=== PATIENT | female | born 1970 | race African-American/Black ===

== ENCOUNTER 2017-11-13 08:59 | Observation (INO) ==
--- NOTE | 2017-11-13 09:57 | ED ---
HPI General Chief Complaint: Recheck/Abnormal Lab/Rx Stated Complaint: physent/medical complaint Time Seen by Provider: 11/13/17 09:43 Source: patient Mode of arrival: ambulatory Limitations: no limitations History of Present Illness HPI narrative: 47 y/o female states she was called for a critical hemoglobin of 6.[address] Back. 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 She states she has not set up a primary doctor yet. 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 She denies any active bleeding or other concurrent complaints at this time. This result was from yesterday. complaint: abnormal lab Initial visit (ago): day(s) Symptoms since prior visit: no new symptoms Context: called for abnormal lab result Associated symptoms: none Related Data Home Medications Medication Instructions Recorded Confirmed gabapentin 400 mg PO TID 11/13/17 11/13/17 Allergies Allergy/AdvReac Type Severity Reaction Status Date / Time No Known Allergies Allergy Unverified 11/13/17 09:24 Review of Systems ROS: all other systems reviewed are negative [facility] Medical History Medical History Anemia (Acute) Anxiety (Acute) Neuropathy (Acute) Surgical History Surgical History H/O section (Acute) History of cholecystectomy (Acute) Hx of gastric bypass (Acute) Social History Social History Substance History: No History of Abuse Smoking Status: Current every day smoker Tobacco Type: Cigarettes How Often Do You Have a Drink Containing Alcohol: Never Recent Travel in [facility] within the Last 8 Weeks: No Recent Out of Country Travel within the Last 8 Weeks: No Immunization History Tetanus Immunization: Unsure Hx Influenza Vaccine This Season: No Exam Narrative Exam Narrative: GENERAL: 47 y/o female in no apparent distress SKIN: Focused skin assessment warm/dry. HEAD: Atraumatic. Normocephalic. EYES: Pupils equal and round. No scleral icterus. No injection or drainage. ENT: No nasal bleeding or discharge. Mucous membranes pink and moist. NECK: Trachea midline. CARDIOVASCULAR: Regular rate and rhythm. RESPIRATORY: No accessory muscle use. GASTROINTESTINAL: Abdomen soft, non-tender, nondistended. MUSCULOSKELETAL: No obvious deformities. No clubbing. No cyanosis. NEUROLOGICAL: Awake and alert. Motor grossly within normal limits. Normal speech. PSYCHIATRIC: Appropriate mood and affect; insight and judgment normal. Course Reevaluation(s) Reevaluation #1: patient updated and agrees to admit Consultations Consultation #1: dr suarez agrees to admit Initial Documented Vital Signs Temperature 98.8 F 11/13/17 09:01 Pulse Rate 93 H 11/13/17 09:01 Respiratory Rate 15 11/13/17 09:01 Blood Pressure 131/74 11/13/17 09:01 Pulse Oximetry 100 11/13/17 09:01 Last Documented Vital Signs Temperature 98 F 11/13/17 11:34 Pulse Rate 70 11/13/17 11:34 Respiratory Rate 17 11/13/17 11:34 Blood Pressure 133/61 11/13/17 11:34 Pulse Oximetry 99 11/13/17 11:34 Medical Decision Making MDM Narrative Medical decision making narrative: Will confirm lab results and if still critically low transfuse with 2 units and observe overnight. Patient agrees to plan Medical Screen Exam Complete: Yes Emergency Medical Condition: Yes Differential Diagnosis Differential Diagnosis: Anemia, iron deficiency, vitamin deficiency, lab error Lab Data Lab results reviewed: Yes I reviewed the patient's lab results. Result diagrams: 11/13/17 09:42 11/13/17 09:42 Lab Results 11/13/17 11/13/17 11/13/17 Range/Units 09:42 09:42 09:42 WBC 3.2 L (4.0-11.0) th/mm3 RBC 3.48 L (4.00-5.30) mil/mm3 Hgb 7.2 L (11.6-15.3) gm/dL Hct 24.2 L (35.0-46.0) % MCV 69.6 L (80.0-100.0) fL MCH 20.6 L (27.0-34.0) pg MCHC 29.5 L (32.0-36.0) % RDW 22.1 H (11.6-17.2) % Plt Count 283 (150-450) th/mm3 MPV 9.0 (7.0-11.0) fL Neut % (Auto) 37.8 (16.0-70.0) % Lymph % (Auto) 46.9 H (9.0-44.0) % [place] % (Auto) 10.2 H (0.0-8.0) % Eos % (Auto) 3.5 (0.0-4.0) % Baso % (Auto) 1.6 (0.0-2.0) % Neut # (Auto) 1.2 L (1.8-7.7) th/mm3 Lymph # (Auto) 1.5 (1.0-4.8) th/mm3 [place] # (Auto) 0.3 (0.0-0.9) th/mm3 Eos # (Auto) 0.1 (0.0-0.4) th/mm3 Baso # (Auto) 0.1 (0.0-0.2) th/mm3 WBC Differential . Differential Comment Auto diff final PT 10.3 (9.8-11.6) sec INR 1.0 Ratio Sodium 141 (136-145) meq/L Potassium 4.2 (3.5-5.1) meq/L Chloride 111 H (98-107) meq/L Carbon Dioxide 21.5 (21.0-32.0) meq/L Anion Gap 9 (5-15) meq/L BUN 4 L (7-18) mg/dL Creatinine 0.88 (0.50-1.00) mg/dL Estimated GFR 83 L (>89) mL/min Random Glucose 99 (74-106) mg/dL Calcium 8.1 L (8.5-10.1) mg/dL Total Bilirubin 0.3 (0.2-1.0) mg/dL AST 21 (15-37) U/L ALT 14 (10-53) U/L Alkaline Phosphatase 81 (45-117) U/L Total Protein 7.8 (6.4-8.2) g/dL Albumin 3.0 L (3.4-5.0) g/dL Blood Type Blood Type Recheck Antibody Screen MTS Gel Crossmatch 11/13/17 11/13/17 Range/Units 09:42 10:15 WBC (4.0-11.0) th/mm3 RBC (4.00-5.30) mil/mm3 Hgb (11.6-15.3) gm/dL Hct (35.0-46.0) % MCV (80.0-100.0) fL MCH (27.0-34.0) pg MCHC (32.0-36.0) % RDW (11.6-17.2) % Plt Count (150-450) th/mm3 MPV (7.0-11.0) fL Neut % (Auto) (16.0-70.0) % Lymph % (Auto) (9.0-44.0) % [place] % (Auto) (0.0-8.0) % Eos % (Auto) (0.0-4.0) % Baso % (Auto) (0.0-2.0) % Neut # (Auto) (1.8-7.7) th/mm3 Lymph # (Auto) (1.0-4.8) th/mm3 [place] # (Auto) (0.0-0.9) th/mm3 Eos # (Auto) (0.0-0.4) th/mm3 Baso # (Auto) (0.0-0.2) th/mm3 WBC Differential Differential Comment PT (9.8-11.6) sec INR Ratio Sodium (136-145) meq/L Potassium (3.5-5.1) meq/L Chloride (98-107) meq/L Carbon Dioxide (21.0-32.0) meq/L Anion Gap (5-15) meq/L BUN (7-18) mg/dL Creatinine (0.50-1.00) mg/dL Estimated GFR (>89) mL/min Random Glucose (74-106) mg/dL Calcium (8.5-10.1) mg/dL Total Bilirubin (0.2-1.0) mg/dL AST (15-37) U/L ALT (10-53) U/L Alkaline Phosphatase (45-117) U/L Total Protein (6.4-8.2) g/dL Albumin (3.4-5.0) g/dL Blood Type B Positive Blood Type Recheck Required Antibody Screen Negative MTS Gel Crossmatch See Detail Imaging Data Attestation: I personally reviewed and interpreted this imaging study as follows : Discharge Plan Discharge Disposition Patient Disposition: 30 Still Patient Discharge Condition Condition: Stable Discharge Details Diagnosis: Anemia Physicians Team ED Provider: Ashly Garcia Primary Care Provider: Primary Care Rachel Shaffer Attending Provider: Shane Traore Discharge Interventions Interventions: Vital Signs Last Done: 11/13/17 09:35 Status ED Status: Admitted Observation Patient
[2017-11-13] MEDS ORDERED: Sodium Chlor 0.9% Inj 250 ML IV.SIG SCH (10:00)
[2017-11-13 10:13] LABS: Baso # (Auto) 0.1 th/mm3 (0.0-0.2); Baso % (Auto) 1.6 % (0.0-2.0); Eos # (Auto) 0.1 th/mm3 (0.0-0.4); Eos % (Auto) 3.5 % (0.0-4.0); Hematocrit 24.2 % (35.0-46.0); Hemoglobin 7.2 gm/dL (11.6-15.3); Lymph # (Auto) 1.5 th/mm3 (1.0-4.8); Lymph % (Auto) 46.9 % (9.0-44.0); Mean Corpuscular Hemoglobin 20.6 pg (27.0-34.0); Mean Corpuscular Volume 69.6 fL (80.0-100.0); Mono # (Auto) 0.3 th/mm3 (0.0-0.9); Mono % (Auto) 10.2 % (0.0-8.0); Neut # (Auto) 1.2 th/mm3 (1.8-7.7); Neut % (Auto) 37.8 % (16.0-70.0); Platelet Count 283 th/mm3 (150-450); Red Blood Count 3.48 mil/mm3 (4.00-5.30); Red Cell Distribution Width 22.1 % (11.6-17.2); White Blood Count 3.2 th/mm3 (4.0-11.0)
[2017-11-13 10:15] LABS: Mean Corpuscular HGB Conc 29.5 % (32.0-36.0)
[2017-11-13 10:41] LABS: Prothrombin Time 10.3 sec (9.8-11.6)
[2017-11-13 10:51] LABS: Alanine Aminotransferase 14 U/L (10-53); Alkaline Phosphatase 81 U/L (45-117); Anion Gap 9 meq/L (5-15); Aspartate Aminotransferase 21 U/L (15-37); Blood Urea Nitrogen 4 mg/dL (7-18); Calcium 8.1 mg/dL (8.5-10.1); Carbon Dioxide 21.5 meq/L (21.0-32.0); Chloride 111 meq/L (98-107); Glomerular Filtration Rate 83 mL/min (>89); Glucose,Random 99 mg/dL (74-106); Potassium 4.2 meq/L (3.5-5.1); Sodium 141 meq/L (136-145); Total Protein 7.8 g/dL (6.4-8.2)
[2017-11-13 12:28] VITALS: O2SAT 100
[2017-11-13 13:30] VITALS: BP 140/63; PULSE 58; RESP 16; TEMP 98.1
[2017-11-13 15:45] LABS: Hematocrit 31.7 % (35.0-46.0); Hemoglobin 9.7 gm/dL (11.6-15.3)
--- NOTE | 2017-11-13 16:12 | P.HP ---
History of Present Illness Primary Care Physician: No Primary Care Physician History of Present Illness: 47-year-old black female being admitted for acute symptomatic anemia. Patient was in her usual state of health and was contacted by her neurologists office and instructed to go to the ER for her having an anemia with hemoglobin less than 7. 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 Patient has a history of gastric bypass and says that oral iron supplementation is not adequate to maintain her iron levels. Says that she has had the classic symptoms come about of diffuse numbness and tingling in her 4 extremities associated with slightly slowed thinking. Says that these are the symptoms that she gets when she thinks her blood levels are low. Denies any slurred speech or any focal neurological deficits otherwise. She denies having any nausea vomiting melena or hematochezia. Denies any hematuria. Says that she still has her periods on a monthly basis the last 3-4 days and only uses 3 pads. Patient states that in her family history her father of some cancer in his 70s, she is not sure at all, cancer was. Cannot effectively rule out colorectal cancer. Review of Systems All other systems reviewed negative except as stated in HPI PMFSH - History History Provided By: Patient - Medical History Medical History: Medical History (Last Reviewed 11/13/17 @ 16:09 by Shane Traore MD) Anemia Anxiety Neuropathy - Surgical History Surgical History: Surgical History (Last Reviewed 11/13/17 @ 16:09 by Shane Traore MD) H/O section History of cholecystectomy Hx of gastric bypass - Family History Family History: Family History (Last Updated 11/13/17 @ 16:09 by Shane Traore MD) Father Cancer - Tobacco History Second Hand Smoke Exposure: Yes Tobacco Use In Past 30 Days: Yes Smoking Status: Current every day smoker Tobacco Type: Cigarettes - Alcohol History How Often Do You Have a Drink Containing Alcohol: Monthly or less - Substance Use History Substance History: No History of Abuse - Travel History Recent Travel in the [place] Within the Last 8 Weeks: No Recent Travel Out of the Country Within the Last 8 Weeks: No - Immunization History Tetanus Immunization: Unsure Hx Influenza Vaccine This Season: No Medications and Allergies Active Medications: Active Medications Sodium Chloride (Ns Inj) 250 mls @ 15 mls/hr IV.SIG ONCE EBONY Stop: 11/14/17 02:39 Last Infusion: 11/13/17 13:30 Dose: Infused Allergies Allergy/AdvReac Type Severity Reaction Status Date / Time No Known Allergies Allergy Unverified 11/13/17 09:24 Home Medications Medication Instructions Recorded Confirmed Type gabapentin 400 mg PO TID 11/13/17 11/13/17 History Exam Vital signs: Vital Signs 11/13/17 09:01 11/13/17 09:35 11/13/17 11:17 Temperature 98.8 F 98.2 F Pulse Rate 93 H 88 75 Respiratory Rate 15 18 18 Blood Pressure 131/74 122/79 139/61 Pulse Oximetry 100 98 99 11/13/17 11:34 11/13/17 12:10 11/13/17 12:27 Temperature 98 F 98.4 F 98.5 F Pulse Rate 70 68 66 Respiratory Rate 17 17 18 Blood Pressure 133/61 136/71 149/68 H Pulse Oximetry 99 99 100 11/13/17 12:48 11/13/17 13:27 Temperature 98.4 F 98.1 F Pulse Rate 67 58 L Respiratory Rate 18 16 Blood Pressure 145/67 H 140/63 Pulse Oximetry 100 100 Intake & Output 11/12/17 11/13/17 11/13/17 18:59 06:59 18:59 Intake Total 900 / 900 Balance 900 / 900 Weight 120.202 kg Intake: IV 100 / 100 NS Inj 250 ML @ 15 mls/hr IV. 100 / 100 SIG ONCE [facility] Rx#:[id number] Other 400 / 400 Rbc As-3 Leukoreduced Unit 400 / 400 [id number] Intake (Blood Product) Amt 400 / 400 Rbc As-3 Leukoreduced Unit 0 / 0 [id number] Rbc As-3 Leukoreduced Unit 400 / 400 [id number] Other: Date of Last Bowel Movement 11/12/17 Narrative: VS: afebrile GENERAL: Well-nourished obese black female lying in bed, no acute distress SKIN: Warm and dry. EYES: No scleral icterus. No injection or drainage. ENT: No nasal bleeding or discharge. Mucous membranes pink and moist. CARDIOVASCULAR: Regular rate and rhythm. no murmurs RESPIRATORY: No accessory muscle use. Clear to auscultation. Breath sounds equal bilaterally. GASTROINTESTINAL: Abdomen soft, non-tender, nondistended. Extremities: No clubbing, cyanosis, or edema. No obvious deformities. MUSCULOSKELETAL: adequate muscle bulk and tone for age and habitus NEUROLOGICAL: Awake and alert. No obvious cranial nerve deficits. No facial droop nor slurred speech noted. Has intact sensation to light finger touch over bilateral upper extremities and feet PSYCHIATRIC: Appropriate mood and affect; insight and judgment normal. Results - Labs CBC & Chem 7: 11/13/17 13:15 11/13/17 09:42 Labs: Laboratory Results - last 24 hr 11/13/17 11/13/17 11/13/17 09:42 09:42 09:42 WBC 3.2 L RBC 3.48 L Hgb 7.2 L Hct 24.2 L MCV 69.6 L MCH 20.6 L MCHC 29.5 L RDW 22.1 H Plt Count 283 MPV 9.0 Neut % (Auto) 37.8 Lymph % (Auto) 46.9 H [place] % (Auto) 10.2 H Eos % (Auto) 3.5 Baso % (Auto) 1.6 Neut # (Auto) 1.2 L Lymph # (Auto) 1.5 [place] # (Auto) 0.3 Eos # (Auto) 0.1 Baso # (Auto) 0.1 WBC Differential . Differential Comment Auto diff final PT 10.3 INR 1.0 Sodium 141 Potassium 4.2 Chloride 111 H Carbon Dioxide 21.5 Anion Gap 9 BUN 4 L Creatinine 0.88 Estimated GFR 83 L Random Glucose 99 Calcium 8.1 L Total Bilirubin 0.3 AST 21 ALT 14 Alkaline Phosphatase 81 Total Protein 7.8 Albumin 3.0 L Blood Type Blood Type Recheck Antibody Screen MTS Gel Crossmatch 11/13/17 11/13/17 11/13/17 09:42 10:15 13:15 WBC RBC Hgb 9.7 L D Hct 31.7 L MCV MCH MCHC RDW Plt Count MPV Neut % (Auto) Lymph % (Auto) [place] % (Auto) Eos % (Auto) Baso % (Auto) Neut # (Auto) Lymph # (Auto) [place] # (Auto) Eos # (Auto) Baso # (Auto) WBC Differential Differential Comment PT INR Sodium Potassium Chloride Carbon Dioxide Anion Gap BUN Creatinine Estimated GFR Random Glucose Calcium Total Bilirubin AST ALT Alkaline Phosphatase Total Protein Albumin Blood Type B Positive Blood Type Recheck Required Antibody Screen Negative MTS Gel Crossmatch See Detail Caprini VTE Risk Assessment Caprini VTE Risk Assessment: Moderate/High Risk (score >= 2) Caprini Risk Assessment Model: Point Value = 1 Point Value = 2 Point Value = 3 Point Value = 5 Age 41-60 Minor surgery BMI > 25 kg/m2 Swollen legs Varicose veins or History of unexplained or recurrent spontaneous Oral contraceptives or hormone replacement Sepsis (< 1 month) Serious lung disease, including pneumonia (< 1 month) Abnormal pulmonary function Acute myocardial infarction Congestive heart failure (< 1 month) History of inflammatory bowel disease Medical patient at bed rest Age 61-74 Arthroscopic surgery Major open surgery (> 45 min) Laparoscopic surgery (> 45 min) Malignancy Confined to bed (> 72 hours) Immobilizing plaster cast Central venous access Age >= 75 History of VTE Family history of VTE Factor V Leiden Prothrombin [id number] Lupus anticoagulant Anticardiolipin antibodies Elevated serum homocysteine Heparin-induced thrombocytopenia Other congenital or acquired thrombophilia Stroke (< 1 month) Elective arthroplasty Hip, pelvis, or leg fracture Acute spinal cord injury (< 1 month) Prophylaxis Regimen: Total Risk Factor Score Risk Level Prophylaxis Regimen 0-1 Low Early ambulation 2 Moderate Order ONE of the following: *Sequential Compression Device (SCD) *Heparin 5000 units SQ BID 3-4 Higher Order ONE of the following medications: *Heparin 5000 units SQ TID *Enoxaparin/Lovenox 40 mg SQ daily (WT < 150 kg, CrCl > 30 mL/min) *Enoxaparin/Lovenox 30 mg SQ daily (WT < 150 kg, CrCl > 10-29 mL/min) *Enoxaparin/Lovenox 30 mg SQ BID (WT < 150 kg, CrCl > 30 mL/min) AND/OR *Sequential Compression Device (SCD) 5 or more Highest Order ONE of the following medications: *Heparin 5000 units SQ TID (Preferred with Epidurals) *Enoxaparin/Lovenox 40 mg SQ daily (WT < 150 kg, CrCl > 30 mL/min) *Enoxaparin/Lovenox 30 mg SQ daily (WT < 150 kg, CrCl > 10-29 mL/min) *Enoxaparin/Lovenox 30 mg SQ BID (WT < 150 kg, CrCl > 30 mL/min) AND *Sequential Compression Device (SCD) Assessment and Plan - Plan 47-year-old black female being admitted for observation for acute symptomatic anemia. Case discussed with ER physician who is ordering 2 units of blood. Blood transfusion is now completed. And hemoglobin is holding steady at greater than 9. I explained to the patient that if her iron levels are truly low (informed her have her iron level checked outpatient in the clinic) then she would benefit from iron supplementation which would then be better at maintaining her hemoglobin level overall. I also instructed the patient to follow-up with PCP to screen her for colorectal cancer with at least Hemoccult cards since she cannot definitively exclude such a cancer in her father's medical history. Patient has verbalized understanding. Patient has been maximal benefit from hospitalization is clinically stable for discharge.
== END 2017-11-13 17:10 | disposition home or self-care (01) ==
LOC: NEDA 08:59 → NEPE 08:59 → NEPFCDU 13:17
PROVIDERS: ADMIT Hospitalist; ATTEND Hospitalist